=== PATIENT | male | born 1975 | race Caucasian/White ===

== ENCOUNTER 2020-03-07 14:44 | Emergency (ER) | payer OTHER, SELFPAY ==
--- NOTE | 2020-03-07 14:52 | ED.BACK ---
HPI - Back Pain/Injury General Chief Complaint: Back Pain/Injury Stated Complaint: back pain/stiffness Time Seen by Provider: 03/07/20 14:52 Source: patient and RN notes reviewed History of Present Illness HPI Narrative: Patient is a 44-year-old male who presents the urgent care with complaints of low back pain and stiffness. Patient states that it started Saturday morning when he woke up with a sore back worsening on Saturday and Saturday and now it is difficult and painful to walk. Patient is ambulating with a cane. Patient has also been driving a lot recently and sitting for long periods of time while working from home. Patient states that he has taken Aleve [id number] for his pain. Patient denies of any known fall or injury. Denies any past history of chronic back pain. No other acute complaints. No acute distress noted. Patient read the plan of care. Related Data Home Medications Medication Instructions Recorded Confirmed No Home Medications 03/07/20 03/07/20 Allergies Allergy/AdvReac Type Severity Reaction Status Date / Time Penicillins Allergy Rash Verified 03/07/20 14:56 Review of Systems Review of Systems: Narrative: CONSTITUTIONAL: Denies fever, chills, or sweats. EYES: Denies visual changes, redness, or discharge. ENT: Denies rhinorrhea, congestion, sore throat, or otalgia. CARDIOVASCULAR: Denies chest pain, palpitations, or edema. RESPIRATORY: Denies cough or dyspnea. GASTROINTESTINAL: Denies abdominal pain, nausea, vomiting, or diarrhea. GENITOURINARY: Denies dysuria or hematuria. SKIN: Denies rash or itching. MUSCULOSKELETAL: Reports of low back pain, more so on the right NEUROLOGIC: Denies headache, numbness, or weakness. All other systems reviewed are negative, except as documented in HPI. PMFSH Social History Social History Gender identity (if verbalized by the patient): Male Comments At the time of my signature, I reviewed and agree with the nursing past medical, surgical, social, and family history. There is no relevant family history pertinent to the patient complaint. Exam Narrative: Exam Narrative: GENERAL: This is a well-nourished, well-developed patient, in no apparent distress. HEAD: normocephalic, atraumatic. EYES: PERRL. Sclera clear/white. Vision is grossly intact. EARS: External ears normal. Hearing grossly intact. NOSE: External nose normal with no obvious nasal discharge, nares without redness, no rhinorrhea. THROAT: Mucous membranes moist NECK: Neck supple SKIN: warm, intact with no suspicious lesions or rash, good texture and turgor. NEURO: awake, alert, and oriented to person, place and time. There were no obvious focal neurologic abnormalities. EXTREMITIES: No clubbing, cyanosis, or edema. BACK: Mild to moderate right piriformis region tenderness with positive right SLE, mild right lumbar tenderness Course Vital Signs Vital signs: Vital Signs Temperature 97.6 F 03/07/20 14:57 Pulse Rate 103 H 03/07/20 14:57 Respiratory Rate 16 03/07/20 14:57 Blood Pressure 147/91 H 03/07/20 14:57 Pulse Oximetry 99 03/07/20 14:57 Temperature 97.6 F 03/07/20 14:57 Pulse Rate 103 H 03/07/20 14:57 Respiratory Rate 16 03/07/20 14:57 Blood Pressure 147/91 H 03/07/20 14:57 Pulse Oximetry 99 03/07/20 14:57 Reviewed?patient is informed that they may have pre-hypertension or hypertension based on a blood pressure reading in the department. I recommend the patient call the primary care provider listed on their discharge instructions or a physician of their choice this week to arrange follow-up for further evaluation of possible pre-hypertension or hypertension. MDM - Back Pain/Injury MDM Narrative Medical decision making narrative: Advised the patient to continue to use [id number] NSAIDs as needed for pain. Complete steroid regimen as prescribed. Use Flexeril as needed for muscle spasms, low back pains. Be sure not to drive or operate heavy machine
[2020-03-07 14:57] VITALS: BP 147/91; PULSE 103; RESP 16; TEMP 36.4; O2SAT 99
== END 2020-03-07 15:12 | disposition home or self-care (01) ==
PROVIDERS: Emergency Provider Nurse Practitioner Family
DX: G57.01 Lesion of sciatic nerve, right lower limb (principal); S39.012A Strain of muscle, fascia and tendon of lower back, initial encounter; X58.XXXA Exposure to other specified factors, initial encounter
CPT/HCPCS: 99213; G0463